=== PATIENT | female | born 1975 | race Caucasian/White ===

== ENCOUNTER 2016-05-06 16:03 | Emergency (ER) | payer OTHER ==
[~2016-05-06] VITALS: Wt 105.0 kg
[~2016-05-06 16:03] MED LIST: D-ME118S6 PO; DIAZ-90 PO; IBUP-1542 PO; MECL25TA2 PO
[2016-05-06] MEDS ORDERED: HYDROCODONE/APAP (10/325) TAB PO ONE (17:00)
[2016-05-06] MEDS ORDERED: AMOX1TAB10 PO (17:09)
[2016-05-06] MEDS ORDERED: HYDR-906 PO (17:09)
[2016-05-06] MEDS ORDERED: NAPR-260 PO (17:09)
--- NOTE | 2016-05-06 17:15 | ERD ---
ER Documentation Chief Complaint Date/Time DATE: 05/06/16 TIME: 17:11 Chief Complaint DENTAL PAIN X 3 DAYS HPI This Is a 41-year-old female who presents to the emergency department today complaining of dental pain for the past 2 days. Patient states she had dental pain on both her bottom teeth and her upper teeth hurt bottom tooth went away noted just her upper tooth. States she is taking ibuprofen with no improvement in symptoms. States that she drinks something cold she has a lot of nerve pain. Denies any fevers or chills. ROS All systems reviewed and are negative except as per history of present illness. Medications Home Meds Active Scripts Naproxen* (Naprosyn*) 500 Mg Tablet, 500 MG PO BID Y for PAIN AND/OR INFLAMMATION, #30 TAB Prov:RAE GREGORY PA-C 05/06/16 Amoxicillin/Potassium Clav (Amox-Clav 875-125 mg Tablet) 875-125 mg Tab, 1 TAB PO BID for 10 Days, #20 TAB Prov:RAE GREGORY PA-C 05/06/16 Hydrocodone/Acetaminophen ([place] 5-325 Tablet) 1 Each Tablet, 1 TAB PO Q6H Y for PAIN, #20 TAB Prov:RAE GREGORY PA-C 05/06/16 Dextromethorphan Hb-Promethazine Hcl (Promethazine DM Syrup) 180 Ml Syrup, 10 ML PO Q6 Y for COUGH for 5 Days, ML Prov:EILEEN TABOR 07/12/15 Ibuprofen* (Motrin*) 600 Mg Tab, 600 MG PO Q6, #30 TAB Prov:EILEEN TABOR 07/12/15 Diazepam* (Valium*) 5 Mg Tablet, 5 MG PO Q8 Y for ANXIETY, #10 TAB Prov:VANGIE HINTON DO 02/04/15 Meclizine Hcl* (Antivert*) 25 Mg Tablet, 25 MG PO Q6H Y for dizziness, #20 TAB Prov:VANGIE HINTON DO 02/04/15 Allergies Allergies: Coded Allergies: No Known Drug Allergies (Verified Allergy, Unknown, 07/18/06) PMhx/Soc History of Surgery: No Anesthesia Reaction: No Hx Neurological Disorder: No Hx Respiratory Disorders: No Hx Cardiac Disorders: No Hx Psychiatric Problems: No Hx Miscellaneous Medical Probl: No Hx Alcohol Use: Yes Hx Substance Use: No Hx Tobacco Use: No Physical Exam Vitals Vital Signs Date Time Temp Pulse Resp B/P Pulse Ox O2 Delivery O2 Flow Rate FiO2 05/06/16 16:05 98.0 75 18 141/75 99 Physical Exam Const: Obese, no acute distress Head: Atraumatic Eyes: Normal Conjunctiva ENT: Ears TMs normal. Nose no drainage. Throat no erythema no exudate. Poor dentition with gingivitis along the gumline of lower front teeth. Evidence of erosion upper central incisor. Neck: Full range of motion..~ No meningismus. Resp: Clear to auscultation bilaterally Cardio: Regular rate and rhythm, no murmurs Skin: No petechiae or rashes Neur: Awake and alert Psych: Normal Mood and Affect Results 24 hrs Current Medications Medications (Trade) Dose Ordered Sig/Elise Route PRN Reason Start Time Stop Time Status Last Admin Dose Admin Acetaminophen/ Hydrocodone Bitart ([place] (10/325)) 1 tab ONCE ONCE PO 05/06/16 17:00 05/06/16 17:01 DC 05/06/16 16:59 Procedures/MDM Is a 41-year-old female who presents to the emergency department today complaining of dental pain. On physical exam patient has evidence of poor dentition as well as gingivitis on her lower teeth. She also has evidence of erosion of her central incisor. This is likely the source of the patient's pain. I do have low suspicion that she has an abscess or deep space tract infection. She is afebrile and otherwise well-appearing. I will give the patient prescription for [place], Naprosyn and Augmentin. Patient was given a [place] here in the emergency department. I have given her referral information for [facility]. At this time the patient is stable for discharge and outpatient management. Patient should follow up with their PCP in the next 1-2 days. They may return to the emergency department sooner for any persistent or worsening of symptoms. Patient understood and agreed with the plan. Departure Diagnosis: Primary Impression: Pain, dental Condition: Fair Patient Instructions: Dental Pain, Gingivitis (Child) Referrals: [facility] ([facility] walk [facility]) Additional Instructions: Llame al doctor CHRIS y bal gabriel ELVER PARA DENTRO DE 1-2 STEINER.Dgale a la secretaria que nosotros le instruimos hacer esta elver.[place] o llame si garcia condicin se empeora antes de la elver. Regresa aqui si peor o no mejor. Make appointment at the dentist Take [place] for severe pain otherwise take Naprosyn or Tylenol or Motrin Take antibiotics as prescribed RAE GREGORY PA-C May 06, 2016 17:15
== END 2016-05-06 17:18 | disposition home or self-care (01) ==
LOC: FTE 16:03
DX: K08.89 Other specified disorders of teeth and supporting structures (principal)
CPT/HCPCS: Z7502; Z7610; 99284

== ENCOUNTER 2016-11-17 15:53 | Emergency (ER) | payer OTHER ==
[~2016-11-17] VITALS: Wt 68.2 kg
[~2016-11-17 15:53] MED LIST changes: +AMOX1TAB10 PO; +HYDR-906 PO; +NAPR-260 PO
[2016-11-17] MEDS ORDERED: ONDANSETRON (ODT) 4 MG TAB ODT STA (16:12)
[2016-11-17 16:21] LABS: URINE BLOOD (Dip) POC 2+ (NEGATIVE)
--- NOTE | 2016-11-17 16:23 | ERD ---
ER Documentation Chief Complaint Date/Time DATE: 11/17/16 TIME: 16:21 Chief Complaint EPIGASTRIC PAIN FOR THE PAST 4 DAYS. NAUSEA NO VOMITING. NO DYSURIA HPI This is a 41-year-old female who presents the emergency department today complaining of abdominal pain for the past 4 days. States she has had some nausea vomiting. States she had her gallbladder removed 7 years ago. States she has tried Mylanta and [place] with limited improvement in symptoms. States the pain is worse with food.Denies any fevers or chills or dysuria. ROS All systems reviewed and are negative except as per history of present illness. Medications Home Meds Active Scripts Ondansetron Hcl* (Zofran*) 4 Mg Tablet, 4 MG PO Q6H for NAUSEA AND/OR VOMITING, #30 TAB Prov:RAE GREGORY PA-C 11/17/16 Famotidine* (Pepcid*) 20 Mg Tablet, 20 MG PO BID for 14 Days, TAB Prov:RAE GREGORY PA-C 11/17/16 Acetaminophen* (Tylophen*) 500 Mg Capsule, 1 CAP PO Q6H Y for PAIN AND OR ELEVATED TEMP, #30 CAP Prov:PRORAE JANEC 11/17/16 Hydrocodone/Acetaminophen ([place] 5-325 Tablet) 1 Each Tablet, 1 TAB PO Q6H Y for PAIN, #10 TAB Prov:RAE GREGORYC 11/17/16 Naproxen* (Naprosyn*) 500 Mg Tablet, 500 MG PO BID Y for PAIN AND/OR INFLAMMATION, #30 TAB Prov:PRORAE JANEC 05/06/16 Amoxicillin/Potassium Clav (Amox-Clav 875-125 mg Tablet) 875-125 mg Tab, 1 TAB PO BID for 10 Days, #20 TAB Prov:PRORAE JANEC 05/06/16 Hydrocodone/Acetaminophen ([place] 5-325 Tablet) 1 Each Tablet, 1 TAB PO Q6H Y for PAIN, #20 TAB Prov:RAE GREGORYC 05/06/16 Dextromethorphan Hb-Promethazine Hcl (Promethazine DM Syrup) 180 Ml Syrup, 10 ML PO Q6 Y for COUGH for 5 Days, ML Prov:EILEEN TABOR 07/12/15 Ibuprofen* (Motrin*) 600 Mg Tab, 600 MG PO Q6, #30 TAB Prov:EILEEN TABOR C 07/12/15 Diazepam* (Valium*) 5 Mg Tablet, 5 MG PO Q8 Y for ANXIETY, #10 TAB Prov:VANGIE HINTON DO 02/04/15 Meclizine Hcl* (Antivert*) 25 Mg Tablet, 25 MG PO Q6H Y for dizziness, #20 TAB Prov:VANGIE HINTON. DO 02/04/15 Allergies Allergies: Coded Allergies: No Known Drug Allergies (Verified Allergy, Unknown, 07/18/06) PMhx/Soc History of Surgery: No Anesthesia Reaction: No Hx Neurological Disorder: No Hx Respiratory Disorders: No Hx Cardiac Disorders: No Hx Psychiatric Problems: No Hx Miscellaneous Medical Probl: No Hx Alcohol Use: Yes Hx Substance Use: No Hx Tobacco Use: No Physical Exam Vitals Vital Signs Date Time Temp Pulse Resp B/P Pulse Ox O2 Delivery O2 Flow Rate FiO2 11/17/16 15:56 98.8 82 20 109/71 98 Physical Exam Const: Obese, no acute distress Head: Atraumatic Eyes: Normal Conjunctiva ENT: Normal External Ears, Nose and Mouth. Neck: Full range of motion..~ No meningismus. Resp: Clear to auscultation bilaterally Cardio: Regular rate and rhythm, no murmurs Abd: Soft, epigastric tenderness non distended. Normal bowel sounds. No right upper quadrant pain. No tenderness [place] Skin: No petechiae or rashes Back: No midline or flank tenderness Ext: No cyanosis, or edema Neur: Awake and alert Psych: Normal Mood and Affect Result Diagram: 11/17/16 1630 11/17/16 1630 Results 24 hrs Laboratory Tests Test 11/17/16 16:27 11/17/16 16:30 Bedside Urine pH (LAB) 6.0 Bedside Urine Protein (LAB) 1+ Bedside Urine Glucose (UA) Negative Bedside Urine Ketones (LAB) Trace Bedside Urine Blood 2+ Bedside Urine Nitrite (LAB) Negative Bedside Urine Leukocyte Esterase (L Trace White Blood Count 11.210^3/ul Red Blood Count 4.5510^6/ul Hemoglobin 13.3g/dl Hematocrit 39.6% Mean Corpuscular Volume 87.0fl Mean Corpuscular Hemoglobin 29.2pg Mean Corpuscular Hemoglobin Concent 33.6g/dl Red Cell Distribution Width 12.8% Platelet Count 50633^3/UL Mean Platelet Volume 12.4fl Neutrophils % 70.1% Lymphocytes % 19.2% Monocytes % 9.3% Eosinophils % 0.7% Basophils % 0.3% Nucleated Red Blood Cells % 0.0/100WBC Neutrophils # 7.910^3/ul Lymphocytes # 2.210^3/ul Monocytes # 1.110^3/ul Eosinophils # 0.110^3/ul Basophils # 0.010^3/ul Nucleated Red Blood Cells # 0.010^3/ul Sodium Level 144mmol/L Potassium Level 4.1mmol/L Chloride Level 106mmol/L Carbon Dioxide Level 22mmol/L Anion Gap 20 Blood Urea Nitrogen 9mg/dl Creatinine 0.73mg/dl Glucose Level 99mg/dl Calcium Level 8.8mg/dl Total Bilirubin 0.5mg/dl Direct Bilirubin 0.00mg/dl Indirect Bilirubin 0.5mg/dl Aspartate Amino Transf (AST/SGOT) 27IU/L Alanine Aminotransferase (ALT/SGPT) 36IU/L Alkaline Phosphatase 84IU/L Total Protein 8.0g/dl Albumin 4.5g/dl Globulin 3.50g/dl Albumin/Globulin Ratio 1.28 Lipase 107U/L Current Medications Medications (Trade) Dose Ordered Sig/Elise Route PRN Reason Start Time Stop Time Status Last Admin Dose Admin Famotidine (Pepcid) 20 mg ONCE ONCE PO 11/17/16 16:30 11/17/16 16:31 DC 11/17/16 16:31 Ondansetron HCl (Zofran Odt) 4 mg ONCE STAT ODT 11/17/16 16:12 11/17/16 16:16 DC 11/17/16 16:31 Miscellaneous Medication (Gi Cocktail (2)) 40 ml ONCE ONCE PO 11/17/16 16:30 11/17/16 16:31 DC 11/17/16 16:31 Acetaminophen/ Hydrocodone Bitart ([place] (5/325)) 1 tab ONCE ONCE PO 11/17/16 17:30 11/17/16 17:31 DC 11/17/16 17:30 Procedures/MDM This 41-year-old female who presents emergency department today complaining of epigastric pain for the past 4 days. I did obtain laboratory work as well as a UA Laboratory work shows a very mildly elevated white blood cell count. Hemoglobin is within normal limits. Platelets are within normal limits. Electrolytes within normal limits. Glucose within normal limits. Liver enzymes are within normal limits. Lipase within normal limits UA shows trace leukocyte esterase and 2+ blood. Negative nitrites. Urine test is negative She had no right upper quadrant pain ion physical exam and her gallbladder is surgically absent I do not feel that she requires imaging at this time. She does not have any lower abdominal pain of low suspicion for acute surgical abdomen. Patient denied any dysuria and I do not feel patient needs to be treated for trace leukocyte esterase. Patient symptoms at this time is consistent with epigastric pain likely gastritis versus gastric reflux versus ulcer. I have explained this to the patient. Patient may follow-up with her primary care doctor for possible referral to GI specialist. Patient was given Pepcid, Zofran, GI cocktail here in the emergency department and symptoms improved however patient did still have some pain and was therefore given [place]. I gave her a prescription for short course of [place] for home in addition to Tylenol, Pepcid and Zofran At this time the patient is stable for discharge and outpatient management. Patient should follow up with their PCP in the next 1-2 days. They may return to the emergency department sooner for any persistent or worsening of symptoms. Patient understood and agreed with the plan. Departure Diagnosis: Primary Impression: Abdominal pain Abdominal location: epigastric Qualified Code: R10.13 - Epigastric pain Condition: RAE Dc PA-C Nov 17, 2016 16:23
[2016-11-17] MEDS ORDERED: FAMOTIDINE 20 MG TAB PO ONE (16:30)
[2016-11-17] MEDS ORDERED: LIDOCAINE/MYLANTA 40 ML BTL PO ONE (16:30)
[2016-11-17 16:42] LABS: BASOPHILS % 0.3 % (0.0-2.0); EOSINOPHILS # 0.1 10^3/ul (0.0-0.5); EOSINOPHILS % 0.7 % (0.0-7.0); HEMATOCRIT 39.6 % (37.0-47.0); HEMOGLOBIN 13.3 g/dl (12.0-16.0); LYMPHOCYTES # 2.2 10^3/ul (0.8-2.9); LYMPHOCYTES % 19.2 % (15.0-51.0); MEAN CORPUSCULAR HEMOGLOBIN 29.2 pg (29.0-33.0); MEAN CORPUSCULAR HGB CONC 33.6 g/dl (32.0-37.0); MEAN PLATELET VOLUME 12.4 fl (7.4-10.4); MONOCYTE # 1.1 10^3/ul (0.3-0.9); MONOCYTES % 9.3 % (0.0-11.0); NEUTROPHIL # 7.9 10^3/ul (1.6-7.5); NEUTROPHILS % 70.1 % (39.0-77.0); PLATELET COUNT 249 10^3/UL (140-415); RED BLOOD COUNT 4.55 10^6/ul (4.20-5.40); RED CELL DISTRIBUTION WIDTH 12.8 % (11.5-14.5); WHITE BLOOD COUNT 11.2 10^3/ul (4.8-10.8)
[2016-11-17 17:09] LABS: ALBUMIN 4.5 g/dl (3.3-4.9); ALBUMIN/GLOBULIN RATIO 1.28; BILIRUBIN,INDIRECT 0.5 mg/dl (0-1.1); BILIRUBIN,TOTAL 0.5 mg/dl (0.2-1.3); CALCIUM 8.8 mg/dl (8.4-10.2); CREATININE 0.73 mg/dl (0.44-1.00); POTASSIUM 4.1 mmol/L (3.5-5.1)
[2016-11-17] MEDS ORDERED: HYDROCODONE/APAP (5/325) TAB PO ONE (17:30)
[2016-11-17] MEDS ORDERED: HYDR-906 PO (17:39)
[2016-11-17] MEDS ORDERED: ACET500C5 PO (17:39)
[2016-11-17] MEDS ORDERED: ONDA4TAB8 PO (17:39)
[2016-11-17] MEDS ORDERED: FAMO-96 PO (17:39)
== END 2016-11-17 17:56 | disposition home or self-care (01) ==
LOC: FTE 15:53
DX: R10.13 Epigastric pain (principal); R11.2 Nausea with vomiting, unspecified
CPT/HCPCS: 36415; 80053; 81003; 83690; 85025; Z7502; Z7610; 99284